=== PATIENT | male | born 1985 | race Caucasian/White ===

== ENCOUNTER 2023-01-14 08:45 | Outpatient (CLI) | payer BC ==
[2023-01-14 15:19] LABS: Bacteria/HPF None Seen HPF (None Seen); Bilirubin Negative (Negative); Blood, Urine 2+ (Negative); Clarity Clear (Clear); Glucose, Urine (Dipstick) Normal (Negative); Ketone, Urine Negative (Negative); Leukocyte Negative Leu/uL (Negative); Nitrite Negative (Negative); Protein, Urine (Dipstick) Negative (Neg-Trace); RBC/HPF 0-3 HPF (0-3); Specific Gravity, Urine 1.023 (1.002-1.036); Squamous Epithelial 0-3 HPF (0-3); Urobilinogen Normal mg/dL (Less than 2); WBC/HPF 0-3 HPF (0-3); pH, Urine 5.5 (5.0-9.0)
[2023-01-14 16:58] LABS: ALT (SGPT) 37 U/L (8-55); AST (SGOT) 20 U/L (5-34); Albumin 4.5 g/dL (3.5-5.0); Alkaline Phosphatase 83 U/L (40-110); Anion Gap 13 mmol/L (10-20); BUN (Urea Nitrogen) 15 mg/dL (8.9-20.6); Bilirubin, Total 0.6 mg/dL (0.2-1.2); Calc. Creatinine Clearance 0 mL/min (70-130); Calcium 9.5 mg/dL (7.8-10.44); Carbon Dioxide 26 mmol/L (22-29); Cardiac Risk 4.4 (Less than 4.5); Chloride 107 mmol/L (98-107); Cholesterol 181 mg/dl (< 200 Desired); Estimated GFR 96; Globulin 2.6 g/dL (2.4-3.5); Glucose 90 mg/dL (70-105); HDL Cholesterol 41 mg/dL (>60 Neg Risk); LDL Cholesterol, Calculated 117 mg/dL; Potassium 4.7 mmol/L (3.5-5.1); Protein, Total 7.1 g/dL (6.0-8.3); Sodium 141 mmol/L (136-145); Triglycerides 114 mg/dL (Less than 150)
== END 2023-01-14 08:46 | disposition home or self-care (01) ==
LOC: SCSRAD 08:45
PROVIDERS: ATTEND Family Medicine
DX: M79.671 Pain in right foot (principal); R31.9 Hematuria, unspecified; E78.5 Hyperlipidemia, unspecified; M77.31 Calcaneal spur, right foot
CPT/HCPCS: 36415; 80053; 80061; 81001; 87086

== ENCOUNTER 2025-06-06 10:03 | Outpatient (CLI) | payer BC | END 2025-06-06 10:04 | disposition home or self-care (01) | LOC: SCSRAD 10:03 | PROVIDERS: ATTEND Family Medicine | DX: M54.2 Cervicalgia (principal) | CPT/HCPCS: 72052 ==

== ENCOUNTER 2025-08-10 08:45 | Outpatient (CLI) | payer BC | END 2025-08-10 08:46 | disposition home or self-care (01) | LOC: SCSRAD 08:45 | PROVIDERS: ATTEND Family Medicine | DX: M79.672 Pain in left foot (principal) ==